=== PATIENT | female | born 1975 | race Caucasian/White ===

== ENCOUNTER 2018-12-15 02:25 | Emergency (ER) | payer MEDICARE ==
[~2018-12-15] VITALS: Ht 157.5 cm; Wt 47.6 kg
[~2018-12-15 02:25] MED LIST: BACTRIM DS TAB1 EACH PO; CIPRO500 MG PO; CLEOCIN HCL300 MG PO; HYDROCODON-ACE1 EACH PO; NAPROSYN500 MG PO; NOHOMEMEDICATIONS; PERCOCET 10-321 EACH PO; PREDNISONE 20 M20 M1 PO; ROBAXIN500 MG PO; TRAMADOL 50 MG50 MG PO; ZOFRAN ODT4 MG PO
[2018-12-15 02:46] LABS: URINE BILIRUBIN NEGATIVE (Negative); URINE BLOOD 2+ (Negative); URINE CLARITY CLEAR; URINE COLOR YELLOW; URINE GLUCOSE-RANDOM NEGATIVE (Negative); URINE KETONES NEGATIVE (Negative); URINE LEUKOCYTES-REFLEX NEGATIVE (Negative); URINE NITRITE-REFLEX NEGATIVE (Negative); URINE PROTEIN NEGATIVE (Negative); URINE SPECIFIC GRAVITY >= 1.030 (1.005-1.030); URINE UROBILINOGEN 0.2 E.U./dl (0.2-1.0)
[2018-12-15 03:25] LABS: INFLUENZA B ANTIGEN None Detected (None Detect)
[2018-12-15] MEDS ORDERED: OSELB75 PO (03:42)
[2018-12-15] MEDS ORDERED: NORCO 7.5-3251 EACH PO (03:42)
[2018-12-15] MEDS ORDERED: PROAIR HFA8.5 GM INH (03:42)
[2018-12-15 03:48] LABS: SQUAMOUS 4-10 Moderate /LPF (0-3)
[2018-12-15 03:49] LABS: CASTS None Seen /LPF (None Seen)
[2018-12-15 03:50] LABS: URINE WBC-REFLEX 0-5 Rare /HPF (0-5)
[2018-12-15 03:51] LABS: BACTERIA-REFLEX 1-9 Few /HPF (None Seen); CRYSTALS None Seen /LPF (None Seen); URINE RBC 3-10 Few /HPF (0-2)
[2018-12-15] MEDS ORDERED: BACTRIM DS TAB1 EACH PO (03:53)
[2018-12-15 04:04] VITALS: BP 125/71
== END 2018-12-15 04:04 | disposition home or self-care (01) ==
LOC: M.ERS 02:25
PROVIDERS: Emergency Medicine
DX: J11.1 Influenza due to unidentified influenza virus with other respiratory manifestations (principal); R30.0 Dysuria; Z88.0 Allergy status to penicillin; Z88.1 Allergy status to other antibiotic agents

== ENCOUNTER 2019-11-25 02:41 | Emergency (ER) | payer MEDICARE ==
[~2019-11-25] VITALS: Ht 157.5 cm; Wt 45.4 kg
[~2019-11-25 02:41] MED LIST changes: +NORCO 7.5-3251 EACH PO; +OSELB75 PO; +PROAIR HFA8.5 GM INH
[2019-11-25 03:16] LABS: INFLUENZA A ANTIGEN Negative (Negative); INFLUENZA B ANTIGEN Negative (Negative)
[2019-11-25 03:52] VITALS: BP 116/72
== END 2019-11-25 03:52 | disposition home or self-care (01) ==
LOC: M.ERS 02:41
PROVIDERS: Family Medicine
DX: J06.9 Acute upper respiratory infection, unspecified (principal); Z88.0 Allergy status to penicillin; Z88.1 Allergy status to other antibiotic agents